=== PATIENT | male | born 1990 | race African-American/Black ===

== ENCOUNTER 2024-05-29 13:08 | Inpatient (IN) | payer OTHER ==
[2024-05-29 14:23] VITALS: BMI 23.0
[2024-05-29] MEDS ORDERED: NICOTINE POLACRILEX 2 MG LOZENGE BC PRN (14:51)
[2024-05-29] MEDS ORDERED: METHOCARBAMOL 500 MG TABLET PO PRN (14:51)
[2024-05-29] MEDS ORDERED: IBUPROFEN 400 MG TABLET (FP) PO PRN (14:51)
[2024-05-29] MEDS ORDERED: P-EPHED 60MG/TRIPROLIDI 2.5MG TABLET PO PRN (14:51)
[2024-05-29] MEDS ORDERED: ONDANSETRON *ODT* 4 MG TABLET SL PRN (14:51)
[2024-05-29] MEDS ORDERED: BISMUTH SUBSALICYLATE 262 MG/15 ML BTL PO PRN (14:51)
[2024-05-29] MEDS ORDERED: POLYETHYLENE GLYCOL (HEALTHYLAX) 3350 17 GM PACKET PO PRN (14:51)
[2024-05-29] MEDS ORDERED: NALOXONE (NARCAN) HCL 4 MG/0.1 ML SPRAY NS PRN (14:51)
[2024-05-29] MEDS ORDERED: MAG HYDROX/AL HYDROX/SIMETH 30 ML UNIT-DOSE CUP PO PRN (14:51)
[2024-05-29] MEDS ORDERED: ACETAMINOPHEN 325 MG TABLET (FP) PO PRN (14:51)
[2024-05-29] MEDS ORDERED: BENZOCAINE/MENTHOL (CHLORASEPTIC ) LOZENGE MM PRN (14:51)
[2024-05-29] MEDS ORDERED: NICOTINE POLACRILEX 2 MG GUM BUC PRN (14:51)
[2024-05-29] MEDS ORDERED: IBUPROFEN 600 MG TABLET (FP) PO PRN (14:51)
[2024-05-29] MEDS ORDERED: DICYCLOMINE HCL 10 MG CAPSULE PO PRN (14:51)
[2024-05-29] MEDS ORDERED: BENZONATATE 200 MG CAPSULE PO PRN (14:51)
[2024-05-29] MEDS ORDERED: LOPERAMIDE HCL 2 MG CAPSULE PO PRN (14:51)
[2024-05-29] MEDS ORDERED: guaiFENesin 600 MG TABLET.ER (FP) PO PRN (14:51)
[2024-05-29] MEDS: MELATONIN 5 MG TABLETS PO SCH (22:52)
[2024-05-29] MEDS: THIAMINE 100 MG TABLET PO SCH (22:53)
[2024-05-30] MEDS: PRENATAL VITAMINS W/ FOLIC ACID TABLET (FP) PO SCH (09:48)
[2024-05-30] MEDS: MAGNESIUM HYDROX 2400MG/30ML ORAL SUSPENSION 30 ML CUP PO PRN (14:25)
[2024-05-31 12:50] VITALS: BP 116/71; PULSE 84; RESP 18; TEMP 98.2
== END 2024-05-31 12:02 | disposition home or self-care (01) | DRG 773 ==
LOC: YASAS 13:08 → Y3N 16:56
PROVIDERS: ADMIT Allergy & Immunology; ATTEND Allergy & Immunology
PROC: HZ2ZZZZ Detoxification Services for Substance Abuse Treatment (ICD-10-PCS; principal; 2024-05-29)
DX: F11.20 Opioid dependence, uncomplicated (principal); F14.20 Cocaine dependence, uncomplicated; F12.20 Cannabis dependence, uncomplicated; F17.210 Nicotine dependence, cigarettes, uncomplicated; F25.9 Schizoaffective disorder, unspecified; Z59.00 Homelessness unspecified
CPT/HCPCS: 80305; 80307; 93005; 93010